=== PATIENT | female | born 1995 | race Caucasian/White ===

== ENCOUNTER → 2018-02-25 | Outpatient (CLI) | payer OTHER ==
[~2018-02-25] MED LIST: ASPI1TAB35 PO; DOXY-229 PO; ETHI1TAB5; FLU60VIA41 IM
--- NOTE | 2018-02-25 16:09 | RADIOLOGY IMAGING REPORT ---
FACILITY: [facility] - [place] PATIENT NAME: Etta Barnett : 1995 MR: [id number] V: [id number] EXAM DATE: ORDERING PHYSICIAN: BETO PETERSON TECHNOLOGIST: Location: [facility] [place] Patient: Etta Barnett : 1995 Visit/Account:[id number] Date of Sevice: 02/25/2018 [facility] TRANSVAGINAL NON-OB HISTORY: PELVIC AND PERINEAL PAIN right-sided pelvic pain, currently menstruating TECHNIQUE: Transvaginal ultrasound pelvis. COMPARISON: None. FINDINGS: Uterus: ; 6.8 cm length x 2.6 cm AP x 3.3 cm transverse. Myometrium: Unremarkable. Endometrium: There is a small amount of fluid within the endometrial canal consistent with the histor y of active menstruation; double thickness 5.1 mm. Cervix: Grossly negative. Ovaries: Right - 2.4 x 1.3 x 2.6 cm Left - 2.1 x 1.7 x 1.5 cm Blood flow is documented in each ovary by duplex Doppler ultrasound.. There are multiple follicles i dentified in both ovaries. The dominant follicle on the right measures 1.1 cm and on the left 1.1 cm Adnexa: Grossly unremarkable. Free pelvic fluid: None. IMPRESSION: There is a small amount of fluid within the endometrial canal consistent with the history of active m enstruation Multiple follicles identified in both ovaries largest measuring 1.1 cm Report Dictated By: Seble Hernandez MD at 02/25/2018 4:01 PM Report E-Signed By: Seble Hernandez MD at 02/25/2018 4:04 PM WSN:[email or web address]
== END ==
LOC: RAD 11:19
PROVIDERS: ATTEND Obstetrics & Gynecology
DX: R10.2 Pelvic and perineal pain (principal)

== ENCOUNTER → 2018-06-10 | Outpatient (CLI) | payer OTHER ==
[~2018-06-10] MED LIST changes: +PREN-127 PO
[2018-06-10 12:52] LABS: PLATELET COUNT, AUTOMATED 298 K/uL (150-450)
== END ==
LOC: LAB 08:20
PROVIDERS: ATTEND Obstetrics & Gynecology
DX: Z34.01 Encounter for supervision of normal first pregnancy, first trimester (principal)
CPT/HCPCS: 36415; 81001; 85025; 86592; 86703; 86762; 86787; 86850; 86900; 86901; 87088; 87340

== ENCOUNTER → 2018-07-01 | Outpatient (CLI) | payer BC ==
[~2018-07-01] MED LIST changes: +MISO200T62 PO; +TRAM-420 PO
== END ==
LOC: LAB 08:38
PROVIDERS: ATTEND Student in an Organized Health Care Education/Training Program
DX: Z02.9 Encounter for administrative examinations, unspecified (principal)